=== PATIENT | female | born 1945 | race Caucasian/White ===

== ENCOUNTER 2020-01-16 03:52 | Outpatient (CLI) | payer MEDICARE, OTHER, SELFPAY ==
[2020-01-16 08:53] LABS: HCT 44.4 % (36.0-46.0); HGB 14.7 g/dL (12.0-15.5); Mean Corp. HGB Concentration 33.1 g/dL (32.0-36.0); Mean Corpuscular Hemoglobin 30.8 pg (27.0-33.0); Mean Corpuscular Volume 93.1 fL (80-95); Mean Platelet Volume 10.2 fL (8.0-11.0); Platelet Count 355 x1000/uL (130-400); RBC 4.77 m/cumm (4.00-5.20); RBC Distribution Width 14.8 % (11.7-14.6); White Blood Cell Count 5.58 k/cumm (4.4-10.8)
[2020-01-16 12:26] LABS: ALT 27 U/L (14-59); AST 18 U/L (15-37); Albumin 3.4 g/dL (3.4-5.0); Alkaline Phosphatase 83 U/L (46-116); Anion Gap 10.3 mmol/L (3-11); BUN 13 mg/dL (7-18); Bilirubin, Total 0.4 mg/dL (0.2-1.0); CO2 25.7 mmol/L (21.0-32.0); CREATININE 0.97 mg/dL (0.55-1.02); Calcium 8.6 mg/dL (8.5-10.1); Calculated LDL 161 mg/dL (<100); Chloride 106 mmol/L (98-107); Cholesterol 232 mg/dL (<200); Estimated GFR 55.83 (mL/min/1.73m2); Glucose 99 mg/dL (74-106); HDL Cholesterol 50 mg/dL (40-60); Potassium 4.5 mmol/L (3.5-5.1); Sodium 142 mmol/L (136-145); Total Protein 6.7 g/dL (6.4-8.2); Triglyceride 109 mg/dL (<150)
== END 2020-01-16 04:12 ==
PROVIDERS: PCP Family Medicine; Visit Provider Family Medicine
DX: E78.00 Pure hypercholesterolemia, unspecified (principal); J45.909 Unspecified asthma, uncomplicated
CPT/HCPCS: 36415; 80053; 80061; 85027

== ENCOUNTER 2021-01-12 21:03 | Outpatient (REF) | payer MEDICARE, OTHER, SELFPAY ==
[2021-01-12 19:07] LABS: Hemoglobin A1C 5.7 % (<5.7)
[2021-01-12 19:09] LABS: Calculated LDL 168 mg/dL (<100); Cholesterol 254 mg/dL (<200); HDL Cholesterol 56 mg/dL (40-60); Triglyceride 150 mg/dL (<150)
== END 2021-01-12 21:04 | disposition home or self-care (01) ==
LOC: LBN 21:03
PROVIDERS: PCP Nurse Practitioner Family; Visit Provider Nurse Practitioner Family
DX: R73.9 Hyperglycemia, unspecified (principal); E78.5 Hyperlipidemia, unspecified
CPT/HCPCS: 80061; 83036

== ENCOUNTER 2024-02-18 01:57 | Outpatient (CLI) | payer MEDICARE, SELFPAY ==
[2024-02-18 12:52] LABS: Anion Gap 9.1 mmol/L (3-11); BUN 18 mg/dL (7-18); CO2 28.9 mmol/L (21.0-32.0); CREATININE 0.8 mg/dL (0.55-1.02); Calcium 9.3 mg/dL (8.5-10.1); Calculated LDL 181 mg/dL (<100); Chloride 104 mmol/L (98-107); Cholesterol 265 mg/dL (<200); Estimated GFR 74.44 (mL/min/1.73m2); Glucose 102 mg/dL (74-106); HDL Cholesterol 59 mg/dL (40-60); Potassium 4.1 mmol/L (3.5-5.1); Sodium 142 mmol/L (136-145); Triglyceride 129 mg/dL (<150)
== END 2024-02-18 01:58 | disposition home or self-care (01) ==
LOC: LOS 01:58
PROVIDERS: PCP Nurse Practitioner Family; Visit Provider Nurse Practitioner Family
DX: Z13.1 Encounter for screening for diabetes mellitus (principal); Z13.6 Encounter for screening for cardiovascular disorders
CPT/HCPCS: 36415; 80048; 80061

== ENCOUNTER 2025-05-23 13:56 | Emergency (ER) | payer MEDICARE, SELFPAY ==
[2025-05-23 14:08] VITALS: BP 107/70; PULSE 52; RESP 16; O2SAT 97
--- NOTE | 2025-05-23 14:15 | DI.RAD_ITS ---
Exam(s) XR SHOULDER RT COMPLETE 2+V EXAM: XR SHOULDER RT COMPLETE 2+V CLINICAL HISTORY: fall, c/f dislocation/fx. TECHNIQUE: 2D digital imaging was performed of the right shoulder. Four images were obtained. AP, Grashey, Y-view and axillary views were obtained. COMPARISON: No exams were available for comparison FINDINGS: BONES: There is a comminuted fracture of the proximal humerus through the proximal metaphysis. There is extension into the greater tuberosity. There is anterior displacement of the distal humeral fragment by 1 shaft's width. There is also overriding of the fracture fragments. No bony destructive lesion is seen. JOINTS: There is an inferior and slightly anterior dislocation of the humeral head. SOFT TISSUE: Normal. IMPRESSION: 1. Comminuted fracture of the proximal humerus to the proximal metaphysis with involvement of the greater tuberosity. There is anterior displacement of the distal humeral fragment 1 shaft's with with overriding of the fracture fragments. There is inferior and slightly anterior dislocation of the humeral head. 2. The preliminary [facility] report was reviewed. DATA REPOSITORY: RADIATION DOSE DELIVERED:
[2025-05-23] MEDS: HYDROmorphone 2 MG/ML SYR 0.5 MG IVP ×2 (14:42→15:28)
[2025-05-23] MEDS: Acetaminophen 500 MG TAB 1000 MG PO (14:42)
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
--- NOTE | 2025-05-23 15:15 | DI.CT_ITS ---
Exam(s) CT UPPER EXTREMITY RT WO EXAM: CT UPPER EXTREMITY RT WO CLINICAL HISTORY: proximal humerus fracture. TECHNIQUE: Imaging Protocol: Axial computed tomography images with coronal and sagittal reformatted images were created and reviewed. COMPARISON: CR,XR XR SHOULDER RT COMPLETE 2+V from 05/23/2025 FINDINGS: The examination is limited due to patient motion artifact. Bones: There is an acute comminuted fracture seen in the proximal humerus. The fracture involves the distal metaphysis in the humeral head including the greater tuberosity. The fracture is impacted with overriding of the fracture fragments. The distal fracture is anteriorly located relative to the humeral head. The alignment of the humeral head has improved compared to the initial x- ray. There is still minimal inferior subluxation of the humeral head relative to the glenoid. There are degenerative changes seen at the acromioclavicular joint. There is a joint effusion present. No lytic or sclerotic lesions are identified. Soft Tissues: There is a 6 mm nodule in the posterior medial aspect of the right upper lobe (series 4, image 118). There is no evidence of an apical pneumothorax. IMPRESSION: 1. Comminuted impacted fracture of the proximal humerus as described above. 2. Improved alignment of the humeral head. There is still minimal inferior subluxation of the humeral head relative to the glenoid. 3. 6 mm nodule in the posterior medial aspect of the right upper lobe. For solitary solid noncalcified nodules measuring 6???8 mm in patients at high risk, an initial follow-up examination is recommended at 6???12 months and again at 18???24 months (grade 1B: strong recommendation, moderate quality evidence). (Isidro et al., 2017) Solitary noncalcified solid nodules measuring 6???8 mm in patients with low clinical risk are recommended to undergo initial follow-up at 6???12 months depending on size, morphology, and patient preference (grade 1C: strong recommendation, low- or [id number] evidence). (Isidro et al., 2017) 4. The preliminary [facility] report was reviewed. Unexpected findings RADIATION DOSE DELIVERED: 264.77mGy.cm Total DLP 264.77mGy.cm Total DLP DATA REPOSITORY: All CT scans at this facility are submitted to the National Radiology Data Registry (NRDR) Dose Index Registry (DIR) with the [employer] (A[employer]). RADIATION OPTIMIZATION: All CT scans at this facility use at least one of these dose optimization techniques: automated exposure control; mA and/or kV adjustment per patient size (includes targeted exams where dose is matched to clinical indication); or iterative reconstruction.
--- NOTE | 2025-05-23 16:10 | DI.[facility]_ITS ---
PROCEDURE INFORMATION: Exam: XR Right Shoulder Exam date and time: 05/23/2025 2:59 PM Age: 79 years old Clinical indication: Injury or trauma; Fall; Additional info: Fall, c/f dislocation/fx TECHNIQUE: Imaging protocol: Radiologic exam of the right shoulder. Views: 2 or more views. COMPARISON: No relevant prior studies available. FINDINGS: Bones/joints: Markedly impacted acute transverse fracture of the right humeral neck, with associated moderately comminuted fracture of the humeral head. There is approximately 5 cm superior migration of the humeral neck. The humeral head is moderately inferiorly displaced. No definite evidence of shoulder dislocation. Soft tissues: Soft tissue swelling of the shoulder. IMPRESSION: 1. Markedly impacted acute transverse fracture of the right humeral neck, with associated moderately comminuted fracture of the humeral head. 2. The humeral head is moderately inferiorly displaced. This may be due to an underlying large joint effusion. Dictated and Authenticated by: Shasha Fernandez MD. Orderin [facility] Inoc[facility] Field MD
--- NOTE | 2025-05-23 16:23 | DI.[facility]_ITS ---
PROCEDURE INFORMATION: Exam: CT Right Upper Extremity Without Contrast, Shoulder Exam date and time: 05/23/2025 3:35 PM Age: 79 years old Clinical indication: Injury or trauma; Fall; Additional info: Fall, c/f dislocation/fx TECHNIQUE: Imaging protocol: Computed tomography of the right upper extremity without contrast. Exam focused on the shoulder. COMPARISON: CR XR SHOULDER RT COMPLETE 2+V 05/23/2025 2:59 PM FINDINGS: Bones/joints: Markedly impacted acute transverse fracture of the right humeral neck. There is approximately 4 cm superior migration of the distal fracture fragment. There is associated mildly comminuted fracture of the humeral head. No shoulder dislocation. Small shoulder joint effusion. Moderate narrowing of the acromioclavicular joint. Soft tissues: Mild infiltrating hematoma in the soft tissues around the right humeral head. IMPRESSION: 1. Markedly impacted acute transverse fracture of the right humeral neck, with associated mildly comminuted fracture of the humeral head. 2. Small joint effusion. Dictated and Authenticated by: Shasha Fernandez MD. Orderin [facility] Inoc[facility] Field MD
[2025-05-23] MEDS: MORPHine IR 15 MG TAB, 4 TABS/BTL PO (16:47)
--- NOTE | 2025-05-24 14:58 | NUR.NOTE ---
Access chart to print the demographic sheet for [facility] billing requisition. Nursing Note:
== END 2025-05-23 16:56 | disposition home or self-care (01) ==
PROVIDERS: Emergency Provider Emergency Medicine; PCP Nurse Practitioner Family
DX: S42.251A Displaced fracture of greater tuberosity of right humerus, initial encounter for closed fracture (principal); W01.0XXA Fall on same level from slipping, tripping and stumbling without subsequent striking against object, initial encounter
CPT/HCPCS: 96374; 96376; 99284; 73030; 73200; J1171

== ENCOUNTER → 2025-05-27 14:19 | Outpatient (BNVA) | payer MEDICARE, SELFPAY | PROVIDERS: PCP Nurse Practitioner Family; Referring Provider Nurse Practitioner Family; Visit Provider Student in an Organized Health Care Education/Training Program | DX: S42.201A Unspecified fracture of upper end of right humerus, initial encounter for closed fracture (principal); W19.XXXA Unspecified fall, initial encounter | CPT/HCPCS: 99214 ==

== ENCOUNTER 2025-05-29 06:14 | Day surgery (SDC) | payer MEDICARE, SELFPAY ==
[2025-05-29] VITALS (14 sets, daily range): BP systolic 84–142; BP diastolic 57–74; PULSE 60–73; RESP 15–20; TEMP 36–36.8; O2SAT 90–99; BMI 26.6
--- NOTE | 2025-05-29 06:36 | ANES.PREOP_ITS ---
General Info Date of Service Date Performed: 05/29/25 Height: 5 ft 3 in Weight: 68.2 kg Body Mass Index (BMI): 26.6 Surgical Procedure: Operation Date: 05/29/25 07:40 Proposed Procedure Side Surgeon p Right Fracture Reverse total shoulder arthroplasty, biceps tenodesis and any other indicated procedures. Right Hitesh Steel MD Meds Allergies and Home Medications Allergies Allergy/AdvReac Type Severity Reaction Status Date / Time No Known Allergies Allergy Verified 05/29/25 06:25 Home Medication Medication Instructions Recorded albuterol sulfate 90 mcg/actuation 2 inh inhalation Q4 H PRN shortness 11/26/24 aerosol inhaler of breath or wheezing #18 gr ams fluticasone 250 mcg-salmeterol 50 1 inh inhalation BID #180 ea 05/20/25 mcg/dose blistr powdr for inhalation (Advair Diskus) acetaminophen 500 mg capsule 1,000 mg PO Q6H PRN 05/27 naproxen 250 mg tablet 250 mg PO BID PRN moderate p ain 05/29/25 and swelling #30 tabs oxycodone 5 mg tablet 5 - 10 mg (1 - 2 x 5 mg) PO .q4-6h 05/29/25 PRN severe pain #18 tabs Current Visit Medications: Current Medications Generic Name Dose Route Start Last Admin Trade Name Freq PRN Reason Stop Dose Admin Ringer's Solution 30 mls @ 2.4 mls/hr 05/29/25 06:00 IV 06/27/25 23:59 INFUSION JEFF Cefazolin Sodium/Dextrose 2 gm in 50 mls @ 100 mls/hr 05/29/25 06:00 Ancef Duplex IVPB 06/27/25 23:59 PREOP JEFF Tranexamic Acid/Sodium Chloride 1,000 mg in 100 mls @ 600 mls/hr 05/29/25 06:00 IVPB 06/27/25 23:59 PREOP JEFF IV Miscellaneous Supplies 1 each 05/29/25 06:00 Iv Access IV 06/27/25 23:59 DIRECTED JEFF Sodium Chloride 0 ml 05/29/25 06:00 Normal Saline Flush 10 Ml Syr IV 06/27/25 23:59 PRN PRN Sodium Chloride 0 ml 05/29/25 06:00 Normal Saline 10 Ml Vial IJ 06/27/25 23:59 DIRECTED PRN Sterile Water 0 ml 05/29/25 06:00 Water,Injection,Sterile 10 Ml Vial IJ 06/27/25 23:59 DIRECTED PRN PFSH Active Problems Active Problems: Problem Status Onset Code Closed fracture of right proximal humerus Acute S42.201A Lung nodule Acute R91.1 Achilles tendinitis Acute M76.60 Actinic keratosis Acute L57.0 Contact dermatitis Acute L25.9 Tubular adenoma of colon Acute D12.6 Asthma Acute J45.909 Medical History Medical History History of ectopic Surgical History Surgical History History of unilateral salpingectomy Status post breast biopsy [place] [facility] [place] [facility] [place] of breast (~1997) fibrocystic Tobacco Smoking/Tobacco Use Status: Former Tobacco Use Passive smoking exposure: No Second hand exposure: No Alcohol Alcohol Intake: current Alcohol intake frequency: a few times a week Alcohol type: wine Substance Use Substance use: Never Substance use type: does not use Vital Signs and Lab Results Vital Signs Most Recent Vital Signs in EMR: Temp Pulse Resp BP Pulse Ox 36.8 C 60 16 142/74 H 99 05/29/25 06:22 05/29/25 06:22 05/29/25 06:22 05/29/25 06:22 05/29/25 06:22 Anesthesia Assessment and Plan Anesthesia History Personal History: No History of Anesthesia Complications Family History: No Family History of Anesthesia Complications Exercise Tolerance Exercise Tolerance: Metabolic Equivalents>4 Pertinent Negatives Pertinent Negatives: No Major Cardiovascular Symptoms or Complaints and No History of CVA/TIA Cardiac & Pulmonary Exam Cardiac Exam: Normal S1/S2 Heart Sounds Pulmonary Exam: Clear Bilateral Breath Sounds Implantable Cardiac Device Does patient have a Pacemaker or an ICD?: No Airway Exam Known Difficult Airway: No Mallampati Class: 2 Mouth Opening: Normal (> 3cm) Thyromental Distance: Greater than 3 cm Neck Range of Motion: Full ROM Neck Circumference: Normal Teeth Condition: Normal Dentition ASA Classification ASA Score: ASA 2 Emergency Case?: No NPO Status NPO Status: NPO Clears >2 hours, Solids >8 hours Anesthesia Plan Resuscitation Status: Full Code Anesthesia Technique: General Anesthesia Airway Planned: Endotracheal Tube Pain Management: Surgeon and patient request nerve block Monitors Used: Standard Monitors
[2025-05-29] MEDS: Lactated Ringers 1,000 ML 30 ML IV ×2 (06:55→07:00)
--- NOTE | 2025-05-29 07:14 | ROE_ITS ---
Operative Note Operative Note PRE-OP DIAGNOSIS: Right: 1. Complex proximal humerus fracture POST-OP DIAGNOSIS: same Right: 1. Complex proximal humerus fracture 2. Incarcerated long heads biceps tendon PROCEDURE: Right: 1. Reverse total shoulder arthroplasty, CPT # 13692 2. Open biceps tenodesis, CPT # 89848 3. Proximal humerus tuberosity repair/ ORIF, CPT #26940 The blood donor unit assistant was medically required as this procedure involves retraction, protection of neurovascular structures, and manipulation of multiple instruments and implants at the same time, which cannot be done without a skilled blood donor unit assistant. SURGEON: Hitesh Steel REGIONAL ADMINISTRATIVE ASSISTANT: Violeta Donnelly ANESTHESIA TYPE: Local By Surgeon, General LMA/ETT and Primary Nerve Block Refer to Anesthesia Record ESTIMATED BLOOD LOSS: 250 COMPLICATIONS: None Patient was transported to: PACU Patient's condition: stable Implants: [employer] modular glenoid system baseplate 24 mm +2 mm lateral [employer] modular glenoid system central post 20 mm [employer] modular glenoid system peripheral locking screws 28 mm inferior, 36 mm superior, 16 mm posterior, 16 mm anterior [employer] modular glenoid system glenosphere 39+4 mm lateralized [employer] humeral stem 135 degrees size 8 [employer] suture cup size 39 neutral [employer] spacer size 39 +6 mm [employer] humeral insert size 39 +3 mm constrained Indications: Please see complete medical record for details. Findings: Complex proximal humerus fracture with significant bone impaction bone loss, extremely poor bone quality, comminuted displaced tuberosities attached to intact rotator cuff. Significantly torn and incarcerated long head biceps tendon. Relatively mild pre-existing glenoid degenerative changes. Soft/poor glenoid bone quality as well. Procedure Description: In the operating room, general anesthesia was induced. The patient was positioned beachchair on the operating room table. All bony prominences were well-padded. Preoperative antibiotics were administered. The shoulder was prepped and draped in the usual sterile fashion for shoulder arthroplasty. The correct patient, procedure, and side of the procedure were all verified prior to incision. The deltopectoral approach was preinjected with 0.25% bupivacaine containing epinephrine and taken to the anterior shoulder. Care was taken to bluntly dissect the interval between the deltoid and pectoralis major muscles and to identify the cephalic vein within its fat stripe. The the vein was mobilized laterally. Fracture fragments and hematoma were encountered on deeper blunt dissection. Care was taken to preserve bone fragments, while removing completely pieces preserved from the back table for later bronc grafting. The proximal humerus fracture was delivered up and out of the wound and some external rotation with the biceps being noted significantly torn and incarcerated between the lesser and greater tuberosity fracture components rotated over and about the tendon especially superiorly. The tendon was then tenodesed using suture tape [id number] to the superior aspect of the pectoralis major tendon and then amputated at about the level of the metaphyseal fracture. As expected, the fracture extended far laterally into the metadiaphyseal region, but there was still some intact calcar medially and anteriorly some intact bone from the bicipital groove. With the proximal humerus already exposed, canal preparation was done using the reamers carefully from size 5 up to size 8. The broaches were then also used carefully after placing a prophylactic FiberTape cerclage just distal to the lowest extent of the fracture extension with the knot and tails directed anteriorly at about the bicipital groove for later use in tuberosity repair. Despite the limited bone quality and stock of the proximal humerus, the size 7 and then 8 stems had excellent fit and rotational control. The size 8 was used for the stem to sit slightly proud her with measurements corresponding nicely to the sutures. Aspect of the pectoralis major tendon and to avoid having to build back up with significant spacers due to the low level of the fracture and stem placement with a size 7. Segmentation was considered, but the size 8 trial demonstrated remarkably good fit having to be removed with back slaps broach handle. The proximal humeral fracture was then delivered back into the wound and attention was turned to the displaced comminuted fracture fragments. The humeral head segment was found bluntly and freed from some adhesions especially posteriorly inferiorly using Shay's. Cancellous bone for the backside was harvested in situ using rongeur and saved for later grafting with repair. The remaining head cartilage segment was then removed carefully rotating out of the wound using Aye's. Blunt dissection was used to confirm no injury of the displaced fracture fragments through the capsule or into any neurovascular structures inferiorly or anteriorly. The greater and lesser tuberosity fragments were then attempted to be identified. There was significant comminuted and soft bone that was also removed. There was a moderately sized lateral fragment corresponding to the infraspinatus and probably teres aspect of the greater tuberosity. A free needle was used to shuttle 2 FiberLink's from deep to superficial at the bone tendon junction for later shuttling and tuberosity repair. There was more of a combined partial lesser and anterior greater tuberosity supraspinatus and infraspinatus bone fragment than typical separation and this was similarly prepared and left combined given the limited bone quality for later repair anteriorly superiorly. Attention was then turned to the glenoid and retractors were placed and the b iceps remnant and soft tissue labrum about the glenoid rim were removed. Care was taken inferiorly to work on bone only between 5 and 7:00 o'clock and bluntly elevate tissues inferiorly. The VIP guide was placed on the glenoid and used to confirm placement and trajectory of the central guidepin. The guidepin was inserted and advanced just through the far cortex confirming the somewhat short but adequate central fixation length. The glenosphere was sized and between 36–39. The glenoid was prepared according to financial compliance officer specifications for a standard baseplate and central post. The baseplate was impacted onto the glenoid surface. There was somewhat poor soft bone for the central fixation despite engaging the far cortex so initial inferior and then superior compression screws were placed through the locking guide followed by appropriate length locking screws anteriorly and posteriorly, and then exchanging the initial superior and inferior compression screws for appropriate length locking screws to finally fix plate the base plate, which was tested and strong. Larger glenosphere was chosen to accommodate the somewhat larger shoulder stature and possible arrived in improve motion and stability in this complex fracture setting with limited bone tuberosity for repair about the prosthesis. The [id number] reamer was used to confirm adequate peripheral reaming. The glenosphere was applied with the machinist 2nd shift and then impacted to engage the Flores taper. It was then locked with appropriate countersinking of the setscrew. The glenosphere was inspected and found to have good fit, appropriate positioning, and no soft tissue or bony impingement. Attention was then turned back to the proximal humerus. The humeral trial cup was connected. Trialing was commenced with +3 mm liner. The shoulder was reduced and taken through range of motion. Trial components were built up to +6 mm spacer and +3 mm liner to achieve excellent stability and good tension on the deltoid and conjoined tension. The trial components were removed from the proximal humerus. The wound was copiously irrigated with normal saline. The the proximal humeral stem and suture cup were assembled and brought over the proximal humerus. Fiber tapes were loaded most posteriorly through the suture cup holes for later shuttling. An additional FiberTape cerclage was placed about the proximal humerus closer to the mid to upper level of the fracture and only provisionally tightened. A small amount of vancomycin powder was distributed in the proximal humerus followed by softly packing in the proximal humerus with some of the softer bone graft more distally and a little bit more firm or more proximally and compressing it into the prepared canal with an undersized broach.. The humeral component and suture cup were impacted into place using the version guide maintaining about 20+ degrees retroversion with excellent gradual impaction fit into the prepared and grafted proximal humerus. The second FiberTape cerclage was then final tightened about the proximal humerus with the component in place with the tails directed laterally. There was great fit despite the fracture pattern and stability and control of the proximal humerus.. The trial spacer and liner were added, and the shoulder was reduced and range of motion, stability, and tension confirmed to be appropriate. The final spacer and liner were then connected, constrained chosen due to complex fracture setting and challenging nature of healing the tuberosities and majority of the rotator cuff, and range of motion, stability, and tension confirmed. The repair and ORIF of the greater tuberosity fragments was then done around the reduced prosthesis. The posterior shuttling links were retrieved and used to shuttle the posterior suture cup FiberTape's through the inferior central portion of the posterior greater tuberosity and rotator cuff. Tapes were then placed superiorly and anteriorly and similarly shuttled through the superior and anterior greater tuberosity lesser tuberosity and rotator cuff. The FiberTape's were then used to close the tuberosities around the prosthesis after packing of the defects with the remainder of the cancellous bone graft it a fracture speed bridge type configuration with the tails from superior secured to the FiberTape cerclage tails distally to prevent superior migration. The proximal tuberosity fragments and rotator cuff were actually stable through arm motion testing and moved as a unit with the stem humeral shaft despite the clear bone loss and lack of clear fracture keys. The shoulder was copiously irrigated with Betadine and normal saline. Vancomycin powder was distributed deeply about the shoulder and through subcutaneous tissues. The deltopectoral interval was approximated with 2-0 Monocryl burying the cephalic vein. Subcutaneous tissue was irrigated then closed using 2-0 Monocryl in a buried interrupted fashion. Skin was closed using 3-0 Monocryl in a buried subcuticular fashion. Skin glue was applied to the incision. A silver impregnated bandage was placed over the incision. The extremity was placed into a shoulder immobilizer. The patient awoke from anesthesia without complication and was taken to the recovery room in stable condition. Date of Procedure: 05/29/25
--- NOTE | 2025-05-29 07:16 | W.PM.DSUDISC ---
Date of service: 05/29/25 Discharge Plan Disposition Patient Disposition: Home Condition: Stable Discharge Details Attending Provider: Hitesh Steel Primary Care Provider: Marcos Lugo Home Meds and New Rx's Prescriptions: New naproxen 250 mg tablet 250 mg PO BID PRN (Reason: moderate pain and swelling) Qty: 30 0RF Rx Instructions: take with a meal oxycodone 5 mg tablet 5 - 10 mg PO .q4-6h MDD 30 mg PRN (Reason: severe pain) Qty: 18 0RF Continued acetaminophen 500 mg capsule 1,000 mg PO Q6H PRN albuterol sulfate 90 mcg/actuation HFA aerosol inhaler 2 inh inhalation Q4H PRN (Reason: shortness of breath or wheezing) Qty: 18 0RF fluticasone propion-salmeterol [Advair Diskus] 250-50 mcg/dose blister with device 1 inh inhalation BID Qty: 180 3RF Discontinued ibuprofen 600 mg tablet 600 mg PO Q8H PRN oxycodone 5 mg tablet 5 mg PO Q6H PRNQty: 10 0RF Discharge Instructions Additional Instructions: Surgery: Right fracture reverse total shoulder arthroplasty (tuberosity repair, constrained liner) with biceps tenodesis 05/29/2025 Activity: Do not lift anything heavier than a coffee. You should keep your arm at your side in a relatively neutral position at all times except for gentle range of motion exercises, physical therapy, and essential activities. You should use the sling whenever you are out of the house. At home it is best to remove the sling and rest the arm on a pillow at your side or support the operative side with your other hand. A physical therapy prescription will be sent electronically to start in about 3 weeks. CONSERVATIVE reverse TSA Protocol. Prescriptions: Naproxen 250 mg take 1 every 12 hours with a meal as needed for moderate pain Oxycodone 5 mg take 1-2 every 4-6 hours as needed for severe pain You may use [id number] Tylenol (acetaminophen) as needed for mild pain. These pain medications may be taken all at once or in different combinations as needed. Also, recommend Colace (docusate) as a stool softener as surgery and pain medicine cause constipation. You may try [id number]-[id number] diphenhydramine (Benadryl) 25-50 mg nightly as a sleep aid Dressings: Leave dressing in place until follow-up. Keep clean and dry at all times. No showers please. Follow-up: 10-[address] Steel You may take off the leg compression stockings this evening at home. You may also leave them on a few days longer if you have a history of leg swelling or edema. Please call the office during business hours with any questions or concerns. Let us know right away if you develop any redness, drainage, fevers, chest pain, or trouble breathing. Do not drink alcohol or drive for at least 24 hours after anesthesia. Discharge Orders Discharge Orders: Discharge Order (Routine); Ordered 05/29/25 Ordered By: Violeta Donnelly DS: Diagnosis Discharge Diagnosis (1) Closed fracture of right proximal humerus: Status: Acute (2) Tendonitis of long head of biceps brachii of right shoulder: Status: Acute
--- NOTE | 2025-05-29 07:41 | ANES.NERVE_ITS ---
Nerve Block Single Injection Procedure Date and Time Date Performed: 05/29/25 Procedure Start: : Location Where Procedure Performed Procedure Location: Day Surgery Unit Reason Performed: Postoperative Analgesia Requesting Provider: Hitesh Steel Timeout Performed Timeout Performed: Yes Monitoring Used ECG, Blood Pressure and SpO2 Sterility Sterility: Hand Hygiene, Surgical Cap, Surgical Mask, Sterile Gloves and Chlorhexidine Sedation Given During Procedure Sedation Given (Indicate Dose Given): No Sedation given Patient Mental Status Patient Mental Status: Awake Nerve Block 1st Nerve Block: Laterality: Right Block Type: Interscalene Ultrasound Image Saved?: Yes Needle / Catheter Used: 100mm SonoPlex II Local Anesthetic Bolus (Indicate Dose Given): Lidocaine used for local inf iltration of skin, Injected in 3-5ml increments after negative blood aspiration, Bupivacaine 0.5% Dose:: 7.5 ml and Exparel Dose:: 7.5 ml Additives (Indicate Dose Given): Normal Saline Ultrasound: Sterile probe cover and gel used Nerve Stimulator: Supplement to Ultrasound use and No twitch or parasthesia noted < 0.5 mA Paresthesia: Right Paresthesia Duration: Transient Procedure Tolerated: No Complications and Patient tolerated well Procedure Outcome: Successful Performed By: Pino Larkin 2nd Nerve Block: Laterality: Right Block Type: Superficial Cervical Plexus Ultrasound Image Saved?: Yes Needle / Catheter Used: 100mm SonoPlex II Local Anesthetic Bolus (Indicate Dose Given): Lidocaine used for local infiltration of skin, Injected in 3-5ml increments after negative blood aspiration, Bupivacaine 0.5% Dose:: 1.5 ml and Exparel Dose:: 1.5 ml Additives (Indicate Dose Given): Normal Saline Ultrasound: Sterile probe cover and gel used Nerve Stimulator: Supplement to Ultrasound use and No twitch or pa rasthesia noted < 0.5 mA Paresthesia: None Procedure Tolerated: No Complications and Patient tolerated well Procedure Outcome: Successful Performed By: Pino Larkin
[2025-05-29] MEDS: ceFAZolin 2 GM/50 ML BAG IVPB (07:55)
[2025-05-29] MEDS: TRANEXAMIC ACID/SOD. CHL. 1,000 MG/100 ML BAG 600 MG IVPB (08:08)
[2025-05-29] MEDS: Vancomycin 1,000 MG VIAL 1000 MG (08:40)
[2025-05-29] MEDS: Bupivacaine 0.25% Pres-Free W/EPI 30 ML VIAL (08:40)
[2025-05-29] MEDS: ceFAZolin 1 GM/50 ML BAG IVPB (11:30)
--- NOTE | 2025-05-29 12:20 | DI.RAD_ITS ---
Exam(s) XR SHOULDER RT COMPLETE 2+V EXAM: XR SHOULDER RT COMPLETE 2+V CLINICAL HISTORY: shoulder arthritis. TECHNIQUE: 2D digital imaging was performed. COMPARISON: CR,XR XR SHOULDER RT COMPLETE 2+V from 05/23/2025 FINDINGS: Two postop views There is satisfactory position alignment of the components of the newly placed reverse prosthesis. No fracture or loosening evident. IMPRESSION: Satisfactory postop appearance DATA REPOSITORY: RADIATION DOSE DELIVERED:
[2025-05-29] MEDS: Albuterol/Ipratropium 3 ML UPD VIAL UPD (12:29)
--- NOTE | 2025-05-29 13:32 | W.ANESPOSTOP ---
Postoperative Evaluation Date, Time and Location Date Performed: 05/29/25 Time Performed: 13:32 Patient Location: Day Surgery Unit Vital Signs Most Recent Imported Vital Signs: Most Recent Vital Signs Temp Pulse Resp BP Pulse Ox 36 C L 70 16 112/63 94 05/29/25 13:22 05/29/25 13:22 05/29/25 13:22 05/29/25 13:22 05/29/25 13:22 Pain Score Most Recent Pain Score: Most Recent Pain Score Pain Level 2 05/29/25 13:22 Assessment Mental Status: Awake (Alert & Oriented to Patient Baseline) Airway and Respiratory Function: Abnormal Respiratory exam (See explanation) (Continuing to work on incentive spirometry) Cardiovascular Function: Hemodynamically Stable Hydration Status: Adequately Hydrated Nausea & Vomiting: No Nausea or Vomiting Pain: Pain is tolerable per patient Peripheral Nerve Block: Regional nerve block not resolved at time of post operative discharge
[2025-05-29] MEDS: Lactobacillus Acidophilus CAP 1 CAP PO (14:12)
== END 2025-05-29 15:37 | disposition home or self-care (01) ==
PROVIDERS: PCP Nurse Practitioner Family; Visit Provider Student in an Organized Health Care Education/Training Program
PROC: (CPT 23472; principal; 2025-05-29 07:30)
DX: S42.291A Other displaced fracture of upper end of right humerus, initial encounter for closed fracture (principal); M75.21 Bicipital tendinitis, right shoulder; X58.XXXA Exposure to other specified factors, initial encounter; G89.18 Other acute postprocedural pain
CPT/HCPCS: 23472; 23615; C1773; 64415; 64450; 73030; J0131; J0665; J0666; J0690; J1100; J1171; J2371; J2405; J2704; J3373; J3475; J7620

== ENCOUNTER 2025-06-10 10:23 | Outpatient (CLI) | payer MEDICARE, SELFPAY ==
--- NOTE | 2025-06-10 09:00 | DI.RAD_ITS ---
Exam(s) XR SHOULDER RT COMPLETE 2+V EXAM: XR SHOULDER RT COMPLETE 2+V INDICATION: F/U FRACTURE. COMPARISON: CR,XR XR SHOULDER RT COMPLETE 2+V from 05/23/2025 CR XR SHOULDER RT COMPLETE 2+V from 05/29/2025 TECHNIQUE: 2D digital imaging was performed. Two views. FINDINGS: Stable alignment of the total shoulder prosthesis given differences in projection. There is a small amount of residual postsurgical air. DATA REPOSITORY: RADIATION DOSE DELIVERED:
== END 2025-06-10 10:24 | disposition home or self-care (01) ==
LOC: DIORS 10:23
PROVIDERS: PCP Nurse Practitioner Family; Referring Provider Nurse Practitioner Family; Visit Provider Student in an Organized Health Care Education/Training Program
DX: S42.201D Unspecified fracture of upper end of right humerus, subsequent encounter for fracture with routine healing (principal); X58.XXXD Exposure to other specified factors, subsequent encounter; Z96.611 Presence of right artificial shoulder joint
CPT/HCPCS: 99024; 73030

== ENCOUNTER 2025-07-07 12:53 | Outpatient (CLI) | payer MEDICARE, SELFPAY ==
--- NOTE | 2025-07-07 10:00 | DI.RAD_ITS ---
Exam(s) XR SHOULDER RT COMPLETE 2+V EXAM: XR SHOULDER RT COMPLETE 2+V CLINICAL HISTORY: F/U RTSA. TECHNIQUE: 2D digital imaging was performed. COMPARISON: CT CT UPPER EXTREMITY RT WO from 05/23/2025 CR XR SHOULDER RT COMPLETE 2+V from 05/29/2025 CR XR SHOULDER RT COMPLETE 2+V from 06/10/2025 FINDINGS: Two views Position alignment of the components of the recently placed (05/29/2025) reverse prosthesis appear unchanged from 06/10/2025. There is no remaining air-gas in the soft tissues (as was evident on 06/10/2025). On the scapular Y-view there are again noted soft tissue calcifications on the outer aspect adjacent to the prosthesis, exhibiting minimal change from images of 06/10/2025. This may represent dystrophic calcification/calcified hematoma. Other possibility may be avulsed bone fragments. IMPRESSION: As above. DATA REPOSITORY: RADIATION DOSE DELIVERED:
== END 2025-07-07 12:54 | disposition home or self-care (01) ==
LOC: DIORS 12:53
PROVIDERS: PCP Nurse Practitioner Family; Referring Provider Nurse Practitioner Family; Visit Provider Student in an Organized Health Care Education/Training Program
DX: S42.201D Unspecified fracture of upper end of right humerus, subsequent encounter for fracture with routine healing (principal); X58.XXXD Exposure to other specified factors, subsequent encounter
CPT/HCPCS: 99024; 73030